=== PATIENT | female | born 1980 | race Asian ===

== ENCOUNTER 2024-01-01 10:24 | Day surgery (SDC) | payer OTHER ==
[~2024-01-01] VITALS: Ht 152.4 cm; Wt 54.4 kg
[2024-01-01] MEDS ORDERED: fentaNYL citrate 0.05 MG/ML VIAL ONE (11:08)
[2024-01-01] MEDS ORDERED: MIDAZOLAM 2 MG/2 ML VIAL ONE (11:08)
[2024-01-01] MEDS: MIDAZOLAM 2 MG/2 ML VIAL IVP ONE (11:18)
== END 2024-01-01 12:25 | disposition home or self-care (01) ==
LOC: MDS 10:24 → MMU 10:24 → MDS 12:25
PROVIDERS: ATTEND Internal Medicine Gastroenterology
DX: R13.10 Dysphagia, unspecified (principal); K21.9 Gastro-esophageal reflux disease without esophagitis; E78.00 Pure hypercholesterolemia, unspecified; Z98.891 History of uterine scar from previous surgery; Z98.890 Other specified postprocedural states
CPT/HCPCS: 43239; J2250; J3010